=== PATIENT | female | born 1955 | race Caucasian/White ===

== ENCOUNTER → 2018-01-07 07:50 | Outpatient (CLI) | payer BC, SELFPAY ==
--- NOTE | 2018-01-07 07:52 | DI.MG.S_ITS ---
BILATERAL DIGITAL SCREENING MAMMOGRAM 3D/2D WITH CAD: 01/07/2018 CLINICAL: Routine screening. Family history of breast cancer. Comparison is made to exams dated: 01/05/2017 mammogram, 02/06/2016 mammogram - [facility], and 06/04/2014 ductography - [facility]. The tissue of both breasts is heterogeneously dense. This may lower the sensitivity of mammography. Current study was also evaluated with a Computer Aided Detection (CAD) system. No significant masses, calcifications, or other findings are seen in either breast. There has been no significant interval change. IMPRESSION: NEGATIVE There is no mammographic evidence of malignancy. A 1 year screening mammogram is recommended. This exam was interpreted at Station ID: [id number]. NOTE: For mammograms, a report in lay terms will be sent to the patient. Approximately 15% of breast malignancies will not be visualized mammographically. In the management of a palpable breast mass, a negative mammogram must not discourage biopsy of a clinically suspicious lesion. Electronically Signed By: Yvrose anand/sarah:01/07/2018 09:50:54 copy to: JANES MELGAR letter sent: Normal Exam ACR BI-RADS Category 1: Negative 3341F
[2018-01-07 08:49] LABS: HEMOLYSIS < 15 (0-50); Iron 98 ug/dL (37-170)
[2018-01-07 08:51] LABS: Alanine Aminotransferase 29 IU/L (9-52); Albumin 4.3 g/dL (3.5-5.0); Albumin Globulin Ratio 1.7 (1.0-2.8); Alkaline Phosphatase 61 U/L (38-126); Aspartate Aminotransferase 19 IU/L (14-36); BUN Creatinine Ratio 23.3 (6-22); Bilirubin Total 0.9 mg/dL (0.2-1.3); Blood Urea Nitrogen 21 mg/dL (7-17); Calcium 9.5 mg/dL (8.4-10.2); Carbon Dioxide 28 mmol/L (22-32); Chloride 108 mmol/L (98-107); Cholesterol 225 mg/dL (140-199); Estimated Glomerular Filt Rate > 60.0 mL/min (>60); Globulin 2.6 g/dL (1.7-4.1); Glucose 115 mg/dL (80-110); HDL Cholesterol 42 mg/dL (40-60); HEMOLYSIS < 15 (0-50); LDL Cholesterol Calculated 158 mg/dL (<100); Sodium 145 mmol/L (137-145); Total Protein 6.9 g/dL (6.3-8.2); Triglycerides 124 mg/dL (35-150)
[2018-01-07 08:54] LABS: Hemoglobin A1C% w Est Avg Glu 6.1 % (4.0-6.0)
[2018-01-07 09:00] LABS: Percent Iron Saturation 31 % (15-50); Total Iron Binding Capacity 313 ug/dL (265-497); Transferrin 256 mg/dL (206-381)
[2018-01-07 09:11] LABS: Free T3, Triiodothyronine Free 2.74 pg/mL (2.77-5.27); Free T4, Direct Thyroxine 0.79 ng/dL (0.78-2.19)
[2018-01-07 09:24] LABS: Thyroid Stimulating Hormone 3.16 uIU/mL (0.47-4.68)
[2018-01-11 08:32] LABS: Estrogen 59.3 pg/mL
== END ==
PROVIDERS: PCP Physician Assistant; Visit Provider Specialist
DX: Z12.31 Encounter for screening mammogram for malignant neoplasm of breast (principal); Z80.3 Family history of malignant neoplasm of breast; R53.83 Other fatigue; E78.5 Hyperlipidemia, unspecified; R73.01 Impaired fasting glucose
CPT/HCPCS: 36415; 77063; 77067; 80053; 80061; 82672; 82728; 83036; 83540; 83550; 84439; 84443; 84481

== ENCOUNTER → 2018-07-01 08:35 | Outpatient (CLI) | payer BC, SELFPAY ==
[2018-07-01 09:12] LABS: Hemoglobin A1C% w Est Avg Glu 5.8 % (4.0-6.0)
[2018-07-01 09:17] LABS: Cholesterol 215 mg/dL (140-199); Glucose 119 mg/dL (80-110); HDL Cholesterol 33 mg/dL (40-60); LDL Cholesterol Calculated 153 mg/dL (<100); Triglycerides 145 mg/dL (35-150)
== END ==
PROVIDERS: PCP Physician Assistant; Visit Provider Physician Assistant
DX: E78.5 Hyperlipidemia, unspecified (principal); R73.01 Impaired fasting glucose
CPT/HCPCS: 36415; 80061; 82947; 83036

== ENCOUNTER → 2018-11-04 07:47 | Outpatient (CLI) | payer BC, SELFPAY ==
[2018-11-04 09:27] LABS: Alanine Aminotransferase 21 IU/L (9-52); Albumin 4.2 g/dL (3.5-5.0); Albumin Globulin Ratio 1.5 (1.0-2.8); Alkaline Phosphatase 66 U/L (38-126); Aspartate Aminotransferase 18 IU/L (14-36); Blood Urea Nitrogen 17 mg/dL (7-17); Calcium 9.5 mg/dL (8.4-10.2); Carbon Dioxide 28 mmol/L (22-32); Chloride 105 mmol/L (98-107); Cholesterol 196 mg/dL (140-199); Globulin 2.8 g/dL (1.7-4.1); Glucose 120 mg/dL (80-110); HDL Cholesterol 39 mg/dL (40-60); HEMOLYSIS < 15 (0-50); LDL Cholesterol Calculated 136 mg/dL (<100); Potassium 4.7 mmol/L (3.4-5.1); Sodium 143 mmol/L (137-145); Triglycerides 103 mg/dL (35-150)
[2018-11-04 09:29] LABS: Creatinine Urine Random 202.3 mg/dL
[2018-11-04 09:34] LABS: Microalbumi Creatinin Ratio Ur 3.9 ug/mg CR (<30); Microalbumin Urine Random 0.8 mg/dL (0-1.6)
[2018-11-04 09:57] LABS: Thyroid Stimulating Hormone 2.13 uIU/mL (0.47-4.68)
== END ==
PROVIDERS: PCP Physician Assistant; Visit Provider Physician Assistant
DX: E78.5 Hyperlipidemia, unspecified (principal); R55 Syncope and collapse; R73.01 Impaired fasting glucose
CPT/HCPCS: 36415; 80053; 80061; 82043; 82570; 84443

== ENCOUNTER → 2018-11-11 10:36 | Outpatient (CLI) | payer BC, SELFPAY ==
--- NOTE | 2018-11-11 10:37 | DI.MG.S_ITS ---
BILATERAL DIGITAL SCREENING MAMMOGRAM 3D/2D WITH CAD: 11/11/2018 CLINICAL: Routine screening. Family history of breast cancer. Comparison is made to exams dated: 01/07/2018 mammogram, 01/05/2017 mammogram, and 02/06/2016 mammogram - [facility]. The tissue of both breasts is heterogeneously dense. This may lower the sensitivity of mammography. Current study was also evaluated with a Computer Aided Detection (CAD) system. No significant masses, calcifications, or other findings are seen in either breast. There has been no significant interval change. IMPRESSION: NEGATIVE There is no mammographic evidence of malignancy. A 1 year screening mammogram is recommended. This exam was interpreted at Station ID: [id number]. NOTE: For mammograms, a report in lay terms will be sent to the patient. Approximately 15% of breast malignancies will not be visualized mammographically. In the management of a palpable breast mass, a negative mammogram must not discourage biopsy of a clinically suspicious lesion. Electronically Signed By: Berto beatty/sarah:11/13/2018 11:02:10 copy to: JANES MELGAR letter sent: Normal Exam ACR BI-RADS Category 1: Negative 3341F
== END ==
PROVIDERS: PCP Physician Assistant; Visit Provider Physician Assistant
DX: Z12.31 Encounter for screening mammogram for malignant neoplasm of breast (principal); Z80.3 Family history of malignant neoplasm of breast
CPT/HCPCS: 77063; 77067

== ENCOUNTER → 2018-11-27 18:50 | Outpatient (CLI) | payer BC, SELFPAY ==
--- NOTE | 2018-11-27 18:53 | DI.RAD.S_ITS ---
PROCEDURE: XR ANKLE LT MIN 3V INDICATIONS: rolled ankle, pain, swelling, decreased ROM, r/o fx TECHNIQUE: 3 views of the ankle were acquired. COMPARISON: None. FINDINGS: Bones: No fractures or dislocations. Ankle mortise is normally aligned. No suspicious bony lesions. Soft tissues: No tibiotalar joint effusion. Achilles tendon appears normal. IMPRESSION: No fracture or dislocation. Dictated by: Emiliano Baum M.D. on 11/27/2018 at 19:22 Approved by: Emiliano Baum M.D. on 11/27/2018 at 19:23
== END ==
PROVIDERS: PCP Physician Assistant; Visit Provider Physician Assistant
DX: S99.912A Unspecified injury of left ankle, initial encounter (principal); M25.472 Effusion, left ankle; X58.XXXA Exposure to other specified factors, initial encounter
CPT/HCPCS: 73610

== ENCOUNTER → 2019-01-13 10:18 | Outpatient (CLI) | payer BC, SELFPAY ==
[2019-01-13 11:00] LABS: Cholesterol 227 mg/dL (140-199); Glucose 114 mg/dL (80-110); HDL Cholesterol 34 mg/dL (40-60); LDL Cholesterol Calculated 174 mg/dL (<100); Triglycerides 93 mg/dL (35-150)
== END ==
PROVIDERS: PCP Physician Assistant; Visit Provider Physician Assistant
DX: E78.5 Hyperlipidemia, unspecified (principal); R73.01 Impaired fasting glucose
CPT/HCPCS: 36415; 80061; 82947

== ENCOUNTER → 2020-03-05 08:53 | Outpatient (CLI) | payer OTHER, MEDICAID, SELFPAY ==
[2020-03-05 09:14] LABS: Hematocrit 40.5 % (36-46); Hemoglobin 13.7 g/dL (12.0-16.0); Mean Corpuscular HGB Conc 33.8 % (30-36); Mean Corpuscular Hemoglobin 29.2 PG (26-34); Mean Corpuscular Volume 86.4 fL (80-100); Platelet Count 227 X10^3/uL (150-400); Red Blood Cell Count 4.69 X10^6/uL (4.0-5.2); Red Cell Distribution Width 13.5 % (11.6-14.8); White Blood Cell Count 6.1 X10^3/uL (4.5-11.0)
[2020-03-05 09:20] LABS: Hemoglobin A1C% w Est Avg Glu 6.2 % (4.0-6.0)
[2020-03-05 09:26] LABS: Alanine Aminotransferase 28 IU/L (<35); Albumin 4.2 g/dL (3.5-5.0); Albumin Globulin Ratio 1.4 (1.0-2.8); Alkaline Phosphatase 67 U/L (38-126); Aspartate Aminotransferase 25 IU/L (14-36); BUN Creatinine Ratio 23.3 (6-22); Bilirubin Total 1.6 mg/dL (0.2-1.3); Blood Urea Nitrogen 24 mg/dL (7-17); Calcium 9.4 mg/dL (8.4-10.2); Carbon Dioxide 31 mmol/L (22-32); Chloride 108 mmol/L (98-107); Cholesterol 174 mg/dL (140-199); Estimated Glomerular Filt Rate 53.9 mL/min (>60); Globulin 2.9 g/dL (1.7-4.1); Glucose 118 mg/dL (80-110); HDL Cholesterol 43 mg/dL (40-60); HEMOLYSIS < 15 (0-50); LDL Cholesterol Calculated 116 mg/dL (<100); Potassium 4.5 mmol/L (3.4-5.1); Sodium 140 mmol/L (137-145); Total Protein 7.1 g/dL (6.3-8.2); Triglycerides 73 mg/dL (35-150)
== END ==
PROVIDERS: PCP Registered Nurse Diabetes Educator; Referring Provider Registered Nurse Diabetes Educator; Visit Provider Registered Nurse Diabetes Educator
DX: E78.5 Hyperlipidemia, unspecified (principal); R03.0 Elevated blood-pressure reading, without diagnosis of hypertension; R73.01 Impaired fasting glucose
CPT/HCPCS: 36415; 80053; 80061; 83036; 84443; 85027

== ENCOUNTER → 2020-03-12 12:13 | Outpatient (CLI) | payer OTHER, MEDICAID, SELFPAY ==
[2020-03-12 12:31] LABS: Bacteria Urine None Seen; RBC Urine None Seen (0-5/HPF); WBC Urine None Seen (0-5/HPF)
[2020-03-12 14:04] LABS: Appearance Urine UA CLEAR; Bilirubin Urine UA NEGATIVE (NEGATIVE); Color Urine UA YELLOW; Glucose Urine UA NEGATIVE (Negative); Ketones Urine UA NEGATIVE (NEGATIVE); Leukocyte Esterase Urine UA NEGATIVE (NEGATIVE); Nitrite Urine UA NEGATIVE (Negative); Occult Blood Urine UA 2+ (Negative); Protein Urine UA NEGATIVE (Negative); Specific Gravity Urine UA 1.025 (1.000-1.035); Urobilinogen Urine UA 0.2 E.U./dL (0.2)
[2020-03-12 14:20] LABS: Culture Indicated Urine Cult Not Indicated
[2020-03-12 16:01] LABS: Creatinine Urine Random 98.4 mg/dL
[2020-03-12 16:04] LABS: Microalbumin Urine Random < 0.6 mg/dL (0-1.6)
== END ==
PROVIDERS: PCP Registered Nurse Diabetes Educator; Referring Provider Registered Nurse Diabetes Educator; Visit Provider Registered Nurse Diabetes Educator
DX: N18.9 Chronic kidney disease, unspecified (principal)
CPT/HCPCS: 81001; 82043; 82570

== ENCOUNTER → 2020-03-14 08:13 | Outpatient (CLI) | payer OTHER, MEDICAID, SELFPAY ==
--- NOTE | 2020-03-14 08:14 | DI.US.S_ITS ---
PROCEDURE: US RENAL COMPLETE INDICATIONS: CKD TECHNIQUE: Real-time scanning was performed of the kidneys and bladder, with image documentation. COMPARISON: None. FINDINGS: Kidneys: Kidneys are normal in size. Right kidney measures 10.9 cm long; left kidney measures 10.7 cm long. Right renal cortical thickness is 1.4 cm; left renal cortical thickness is 1.1 cm. Renal cortical echotexture is normal. No hydronephrosis or nephrolithiasis. No suspicious solid mass lesions. There is a 1.7 cm right renal collecting system margin cyst, simple in character. Bladder: Pre-void bladder volume is 136 mL. Post-void residual is 0 mL. Pre-void images demonstrate no intraluminal masses or stones. On pre-void images, bilateral ureteral jets are noted with color Doppler interrogation. (Of note, ureteral jets may not be detectable in up to 25% of cases due to insufficient differences in specific gravity between ureteral and bladder urine). Miscellaneous: No free pelvic fluid. IMPRESSION: No hydronephrosis or nephrolithiasis is found, normal bladder function. Normal renal size and echotexture. Dictated by: Johnny Hilario M.D. on 03/14/2020 at 12:02 Approved by: Johnny Hilario M.D. on 03/14/2020 at 12:04
--- NOTE | 2020-03-14 08:14 | DI.MG.S_ITS ---
BILATERAL DIGITAL SCREENING MAMMOGRAM 3D/2D WITH CAD: 03/14/2020 CLINICAL: Routine screening. Family history of breast cancer. Comparison is made to exams dated: 11/11/2018 mammogram, 01/07/2018 mammogram, 01/05/2017 mammogram, 02/06/2016 mammogram - [facility], and 11/13/2012 mammogram - [facility]. The tissue of both breasts is heterogeneously dense. This may lower the sensitivity of mammography. Current study was also evaluated with a Computer Aided Detection (CAD) system. No significant masses, calcifications, or other findings are seen in either breast. There has been no significant interval change. IMPRESSION: NEGATIVE There is no mammographic evidence of malignancy. A 1 year screening mammogram is recommended. This exam was interpreted at Station ID: [id number]. NOTE: For mammograms, a report in lay terms will be sent to the patient. Approximately 15% of breast malignancies will not be visualized mammographically. In the management of a palpable breast mass, a negative mammogram must not discourage biopsy of a clinically suspicious lesion. Electronically Signed By: Silas new/sarah:03/14/2020 09:06:00 copy to: JANES MELGAR letter sent: Normal Exam ACR BI-RADS Category 1: Negative 3341F
== END ==
PROVIDERS: PCP Registered Nurse Diabetes Educator; Referring Provider Registered Nurse Diabetes Educator; Visit Provider Registered Nurse Diabetes Educator
DX: Z12.31 Encounter for screening mammogram for malignant neoplasm of breast (principal); Z80.3 Family history of malignant neoplasm of breast; N18.9 Chronic kidney disease, unspecified
CPT/HCPCS: 76770; 77063; 77067

== ENCOUNTER 2020-11-09 10:34 | Emergency (ER) | payer MEDICARE, MEDICAID, SELFPAY ==
[2020-11-09 11:02] VITALS: BP 137/83; PULSE 83; RESP 20; TEMP 37; O2SAT 98; BMI 24.3
--- NOTE | 2020-11-09 11:06 | DI.RAD.S_ITS ---
PROCEDURE: XR KNEE RT 3V INDICATIONS: dogs ran into right knee. heard a pop, able to bear weight. TECHNIQUE: 3 views of the knee were acquired. COMPARISON: [facility], , KNEE 3V LEFT, 01/25/2017, 16:12. FINDINGS: Bones: No fractures or dislocations. A few small osteophytes. Mild joint space narrowing in the medial compartment. No suspicious bony lesions. Soft tissues: A joint effusion is present. No suspicious soft tissue calcifications. IMPRESSION: No acute osseous abnormality. Joint effusion. 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 Dictated by: Silas Cole M.D. on 11/09/2020 at 12:03 Approved by: Silas Cole M.D. on 11/09/2020 at 12:05
--- NOTE | 2020-11-09 11:55 | ED_ITS ---
HPI - Extremity Injury (Lower) <MAYNOR Garland - Last Filed: 11/09/20 17:25> General Chief Complaint: Extremity Injury, Lower Stated Complaint: Hear knee pop when dogs ran into her, swollen Time Seen by Provider: 11/09/20 11:55 Source: patient Mode of arrival: Ambulatory Limitations: no limitations History of Present Illness HPI Narrative: 5-year-old female presents to the ED with 1 day of right lateral knee pain after her dogs ran into her yesterday from the side. Patient reports she heard a pop in her knee when it happened and she is adjusting her gait to walk. She describes the pain as dull most of the time and and sharp and severe intermittently when walking. She reports that her pain has improved since yesterday, she was taking ibuprofen at home yesterday and that was helpful. She denies any weakness, numbness, or tingling. She has not had this pain before. Related Data Previous Rx's Medication Instructions Recorded atorvastatin 20 mg tablet 20 mg PO BEDTIME #90 tab 03/14/20 ketorolac 10 mg tablet 10 mg PO TID PRN 7 Days #20 tab 11/09/20 Allergies Allergy/AdvReac Type Severity Reaction Status Date / Time carisoprodol [CARISOPRODOL] Allergy Severe SWELLING, Verified 11/09/20 11:05 HIVES piroxicam [PIROXICAM] Allergy Severe SWOLLEN, Verified 11/09/20 11:05 PUFFY IN THE FACE Review of Systems <MAYNOR Garland - Last Filed: 11/09/20 17:25> Review of Systems Narrative: General: denies fever, chills Head/Neck: denies headache, neck pain Eyes: denies visual changes, eye pain Cardio: denies chest pain, palpitations Respiratory: denies shortness of breath, cough GI: denies abdominal pain, nausea, vomiting, or diarrhea : denies dysuria, hematuria MSK: Rt knee pain, right knee swelling, denies muscle weakness Skin: denies rash, itching Neuro: denies numbness, tingling Patient History <MAYNOR Garland - Last Filed: 11/09/20 17:25> Medical History Abnormal Pap smear of cervix Chickenpox (~1964) CKD (chronic kidney disease) Elevated BP without diagnosis of hypertension HPV in female Measles Mumps Ovarian cyst Surgical History History of tonsillectomy (~1965) Status post colonoscopy Family History Brother Age: 69 High cholesterol Father Cancer Hypertension Mother Cancer Sister Age: 67 High cholesterol Social History Smoking Status: Never smoker second hand exposure: No alcohol intake: current (sometimes socially.) substance use type: does not use Smoking Status: Never smoker alcohol intake frequency: 0-2 drinks per day Substance Use Type: does not use Exam <MAYNOR Garland - Last Filed: 11/09/20 17:25> Narrative Exam Narrative: Independently reviewed vitals signs and nursing notes. General: Awake, alert, nontoxic, no cardiorespiratory distress Head/Neck: Atraumatic, neck full range of motion Eyes: EOMI, conjunctiva normal Nose: nares patent, no rhinorrhea Mouth/Throat: moist mucus membranes, posterior pharynx normal, no oral lesions Cardio: Regular rate and rhythm, no peripheral edema Respiratory: respirations unlabored without wheezing, stridor, or rales. No retractions. GI: Abdomen soft, nontender MSK: Moves all extremities, neurovascularly intact, right knee with lateral edema, Karan test negative, no pain with Phoenix test, pain with Varus test and tenderness present over LCL Skin: Normal capillary refill, no rash Neuro: Normal speech and cognition, normal gait Initial Vital Signs Initial Vital Signs: Vital Signs Temperature 98.6 F 11/09/20 11:02 Pulse Rate 83 11/09/20 11:02 Respiratory Rate 20 11/09/20 11:02 Blood Pressure 137/83 11/09/20 11:02 Pulse Oximetry 98 11/09/20 11:02 <Oleg Cunningham DO - Last Filed: 11/09/20 17:36> Initial Vital Signs Initial Vital Signs: Vital Signs Temperature 98.6 F 11/09/20 11:02 Pulse Rate 83 11/09/20 11:02 Respiratory Rate 20 11/09/20 11:02 Blood Pressure 137/83 11/09/20 11:02 Pulse Oximetry 98 11/09/20 11:02 Procedures <MAYNOR Garland - Last Filed: 11/09/20 17:25> Orthopedic Splinting/Casting Injury #1: Side: right Lower Extremity Injury Location: knee Lower Extremity Immobilizer: knee immobilizer Other Orthopedic Equipment: walker Post splinting neuro exam: intact Post splinting vascular exam: intact Placed by: Nursing Course <MAYNOR Garland - Last Filed: 11/09/20 17:25> Orders Ordered: ED Orders 11/09/20 11:06 XR knee RT 3V Stat Discontinued Medications Ketorolac Tromethamine (Ketorolac 30 Mg/Ml Vial) 30 mg IM NOW ONE Stop: 11/09/20 12:10 Last Admin: 11/09/20 12:34 Dose: 30 mg Documented by: BROOKSOR Vital Signs Vital signs: Vital Signs - 8 hr 11/09/20 11:02 11/09/20 13:48 Temperature 98.6 F Pulse Rate 83 87 Respiratory Rate 20 Blood Pressure 137/83 136/84 Pulse Oximetry 98 98 <Oleg Cunningham DO - Last Filed: 11/09/20 17:36> Orders Ordered: ED Orders 11/09/20 11:06 XR knee RT 3V Stat Discontinued Medications Ketorolac Tromethamine (Ketorolac 30 Mg/Ml Vial) 30 mg IM NOW ONE Stop: 11/09/20 12:10 Last Admin: 11/09/20 12:34 Dose: 30 mg Documented by: ATAYLOR Vital Signs Vital signs: Vital Signs - 8 hr 11/09/20 11:02 11/09/20 13:48 Temperature 98.6 F Pulse Rate 83 87 Respiratory Rate 20 Blood Pressure 137/83 136/84 Pulse Oximetry 98 98 MDM - Extremity Injury (Lower) <MAYNOR Garland - Last Filed: 11/09/20 17:25> Imaging Data Extremity x-ray #1: Radiologist's Impression: PROCEDURE:? XR KNEE RT 3V ? INDICATIONS:? dogs ran into right knee. heard a pop, able to bear weight. ? TECHNIQUE:? 3 views of the knee were acquired.? ? COMPARISON:? [facility], CR, KNEE 3V LEFT, 01/25/2017, 16:12. ? FINDINGS:? ? Bones:? No fractures or dislocations.? A few small osteophytes.? Mild joint space narrowing in the medial compartment.? No suspicious bony lesions.? ? Soft tissues:? A joint effusion is present.? No suspicious soft tissue calcifications.? ? ? IMPRESSION:? No acute osseous abnormality.? Joint effusion. ? 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 ? ? Dictated by: Silas Cole M.D. on 11/09/2020 at 12:03 ? ? Approved by: Silas Cole M.D. on 11/09/2020 at 12:05 ? MDM Narrative Medical decision making narrative: 65-year-old female presents with right knee pain that started yesterday when dogs ran into the lateral side of her right knee. She reports that she heard a pop, and has had swelling and pain since. X-ray was negative for fracture. Patient had pain with varus stress test and point tenderness over the LCL. Placed in a knee immobilizer and given a walker, encouraged patient to follow-up with her PCP in 1 week if still painful and swollen. Initial ddx to include but not limited to ligamental injury, meniscal tear, arthritis. Patient is appropriate and amenable to discharge home. Vital signs are stable on repeat examination is unremarkable. Patient has been informed of results. Patient has been given strict return to ER precautions for any new or worsening symptoms. Patient understands to follow up closely with outpatient providers as instructed. Patient understands plan and agrees to discharge home. All questions and concerns answered at this time. Discharge Plan Departure Patient Disposition: Home Clinical Impression: Acute knee pain Qualifiers: Laterality: right Qualified Code(s): M25.561 - Pain in right knee Instructions: DI for Knee Sprain, DI for Knee Pain Activity Restrictions/Additional Instructions: *You have been diagnosed with right knee pain, likely a sprain, but you could have ligamental injury that did not show up on x-ray. You have swelling in your knee status that was visible on x-ray. If not better in 1 week please follow- up with your PCP or you can follow-up with [facility], Dr. Kimble is on for them this week. Either 1 of them can order an MRI. *What to do: *Please continue to take your regular medications as directed. [x ] New medication prescriptions sent to your pharmacy: [[facility] ] [ ] New medication written as a paper prescription [ ] No new medications given *Please follow up with your primary care provider in 2-3 days, call for an appointment. Let them know you were seen in the Emergency Department and that we ask that you be seen in follow up. We will electronically transmit a record of today's note if your PCP is in our system *If you do not have a primary care provider please contact the [facility] Resource line at [phone]. They will ask some questions about your medical history and help get you set up with a doctor in the community. *Return to Emergency Department if you should have any new, worsening or concerning symptoms, such as [fever greater than 101F, chills, worsening pain, persistent vomiting or other bothersome symptoms] Prescriptions: New ketorolac 10 mg tablet 10 mg PO TID PRN (Reason: pain) 7 Days Qty: 20 RF: 0 No Action atorvastatin 20 mg tablet 20 mg PO BEDTIME Qty: 90 RF: 3 Referrals: Joseph Kimble MD [Physician] - Arvind Mejia ARNP [Primary Care Provider] - <Oleg Cunningham, - Last Filed: 11/09/20 17:36> [facility] Dr Cunningham Co-Sign Statement: I was available for consultation during this patient's emergency department visit. This chart is signed by myself for administrative purposes only. I did not have direct contact with this patient during this visit. They were seen independently by the APC.
[2020-11-09] MEDS: KETOROLAC 30 MG/ML VIAL IM (12:34)
[2020-11-09 13:48] VITALS: BP 136/84; PULSE 87; O2SAT 98
== END 2020-11-09 13:56 | disposition home or self-care (01) ==
PROVIDERS: Emergency Provider Nurse Practitioner Critical Care Medicine; PCP Registered Nurse Diabetes Educator
DX: M25.561 Pain in right knee (principal); W22.8XXA Striking against or struck by other objects, initial encounter
CPT/HCPCS: 73562; 96372; 99283; 99284; J1885

== ENCOUNTER → 2020-11-27 17:38 | Outpatient (CLI) | payer MEDICARE, MEDICAID, SELFPAY ==
--- NOTE | 2020-11-27 17:38 | DI.MRI.S_ITS ---
PROCEDURE: MR KNEE RT WO CON INDICATIONS: Unspecified internal derangement of right knee TECHNIQUE: Noncontrast sagittal PD fast spin echo and T2 fast spin echo with fat saturation, sagittal 3-D FLASH with fat saturation; coronal T1 spin echo and PD fast spin echo with fat saturation, and axial PD fast spin echo with fat saturation through the knee. COMPARISON: [facility], CR, XR KNEE RT 3V, 11/09/2020, 11:43. FINDINGS: Image quality: Excellent. Menisci: There is an inferior flap tear in the body and posterior horn of the medial meniscus with mild degenerative tearing also present extending into the posterior horn. The lateral meniscus appears intact. The meniscal root ligaments appear intact. Cruciate ligaments: The anterior and posterior cruciate ligaments appear intact. Medial structures: The medial collateral ligament appears intact. The semimembranosus tendon insertions and meniscocapsular junction appear intact. Visualized portions of the pes anserinus tendons appear intact with mild peritendinous edema but no discrete associated bursal fluid collections. Lateral structures: The lateral collateral ligament, long and short heads of the biceps femoris tendon appear intact. The popliteus tendon appears intact. Iliotibial band appears normal. Anterior structures: The quadriceps and patellar tendons appear intact. Patellar alignment is normal. No femoral trochlear dysplasia or ventral trochlear prominence. No edema in the infrapatellar fat pad. Bones and cartilage: There is a nondepressed subchondral impaction fracture within the lateral tibial plateau with associated adjacent bone marrow edema. A small peripheral region of indistinct bone marrow edema is also demonstrated in the medial femoral condyle anteriorly suggestive of a mild bone contusion. Mild cartilage thinning and superficial chondral irregularity are present within the medial and lateral compartments. There is also mild superficial chondral irregularity along the trochlear cartilage. Joint space: There is physiologic knee joint fluid. No Teresa's cyst. Normal appearing synovial plicae are incidentally noted. IMPRESSION: 1. Nondepressed subchondral impaction fracture of the lateral tibial plateau. There is a likely associated mild bone contusion within the medial femoral condyle anteriorly. 2. Complex tearing of the medial meniscus involving the body and posterior horn. Dictated by: Berto Stephens M.D. on 11/28/2020 at 10:06 Approved by: Berto Stephens M.D. on 11/28/2020 at 10:33
== END ==
PROVIDERS: PCP Registered Nurse Diabetes Educator; Referring Provider Orthopaedic Surgery Adult Reconstructive Orthopaedic Surgery; Visit Provider Orthopaedic Surgery Adult Reconstructive Orthopaedic Surgery
DX: S83.231A Complex tear of medial meniscus, current injury, right knee, initial encounter (principal); S82.141A Displaced bicondylar fracture of right tibia, initial encounter for closed fracture; X58.XXXA Exposure to other specified factors, initial encounter
CPT/HCPCS: 73721

== ENCOUNTER → 2020-12-25 11:06 | Outpatient (CLI) | payer MEDICARE, MEDICAID, SELFPAY ==
[2020-12-25 16:02] LABS: COVID19 -Nasal RAPID Negative (Negative)
== END ==
PROVIDERS: PCP Registered Nurse Diabetes Educator; Visit Provider Registered Nurse
DX: Z20.822 Contact with and (suspected) exposure to COVID-19 (principal)
CPT/HCPCS: 87635

== ENCOUNTER → 2020-12-25 11:24 | Outpatient (CLI) | payer MEDICARE, MEDICAID, SELFPAY ==
--- NOTE | 2020-12-25 11:29 | DI.RAD.S_ITS ---
PROCEDURE: XR FINGER LT MIN 2V INDICATIONS: left 4rth finger injury, pain TECHNIQUE: AP hand, 2 views of the 4th finger(s) acquired. COMPARISON: None. FINDINGS: Bones: Minimally displaced intra-articular fracture is present involving the base of the 4th distal phalanx along the ulnar surface.. No suspicious bony lesions. Soft tissues: No suspicious soft tissue calcifications. IMPRESSION: Intra-articular fracture involving the base of the 4th distal phalanx. Dictated by: Chepe ONTIVEROS Interpreted: Ralf Vasques MD on 12/25/2020 at 11:47 Transcribed by: KERVIN on 12/25/2020 at 11:48 Approved by: Ralf Vasques M.D. on 12/25/2020 at 11:51
== END ==
PROVIDERS: PCP Registered Nurse Diabetes Educator; Referring Provider Registered Nurse; Visit Provider Registered Nurse
DX: S62.635A Displaced fracture of distal phalanx of left ring finger, initial encounter for closed fracture (principal); Z20.822 Contact with and (suspected) exposure to COVID-19; X58.XXXA Exposure to other specified factors, initial encounter
CPT/HCPCS: 73140; 87635

== ENCOUNTER → 2021-01-15 10:36 | Outpatient (CLI) | payer MEDICARE, MEDICAID, SELFPAY | PROVIDERS: PCP Registered Nurse Diabetes Educator; Referring Provider Orthopaedic Surgery; Visit Provider Orthopaedic Surgery | DX: S82.141D Displaced bicondylar fracture of right tibia, subsequent encounter for closed fracture with routine healing; M85.852 Other specified disorders of bone density and structure, left thigh; Z78.0 Asymptomatic menopausal state; Z82.62 Family history of osteoporosis | CPT/HCPCS: 77080 ==

== ENCOUNTER → 2021-04-04 08:08 | Outpatient (CLI) | payer MEDICARE, MEDICAID, SELFPAY ==
[2021-04-04 10:25] LABS: Hematocrit 41.3 % (36-46); Mean Corpuscular HGB Conc 33.8 % (30-36); Mean Corpuscular Hemoglobin 29.2 PG (26-34); Mean Corpuscular Volume 86.3 fL (80-100); Platelet Count 213 X10^3/uL (150-400); Red Blood Cell Count 4.79 X10^6/uL (4.0-5.2); Red Cell Distribution Width 13.5 % (11.6-14.8); White Blood Cell Count 5.3 X10^3/uL (4.5-11.0)
[2021-04-04 10:44] LABS: Appearance Urine UA CLEAR; Bilirubin Urine UA NEGATIVE (NEGATIVE); Color Urine UA YELLOW; Glucose Urine UA NEGATIVE (Negative); Ketones Urine UA NEGATIVE (NEGATIVE); Leukocyte Esterase Urine UA NEGATIVE (NEGATIVE); Nitrite Urine UA NEGATIVE (Negative); Occult Blood Urine UA TRACE-LYSED (Negative); Protein Urine UA NEGATIVE (Negative); Specific Gravity Urine UA >=1.030 (1.000-1.035); Urobilinogen Urine UA 0.2 E.U./dL (0.2)
[2021-04-04 10:51] LABS: Hemoglobin A1C% w Est Avg Glu 6.1 % (4.0-6.0)
[2021-04-04 11:00] LABS: Bacteria Urine None Seen; Culture Indicated Urine Cult Not Indicated; RBC Urine None Seen (0-5/HPF); Urine Comments Microscopic Normal; WBC Urine None Seen (0-5/HPF)
[2021-04-04 11:08] LABS: Alanine Aminotransferase 28 IU/L (<35); Albumin 4.4 g/dL (3.5-5.0); Albumin Globulin Ratio 1.6 (1.0-2.8); Alkaline Phosphatase 59 U/L (38-126); Aspartate Aminotransferase 29 IU/L (14-36); BUN Creatinine Ratio 28.7 (6-22); Bilirubin Total 1.4 mg/dL (0.2-1.3); Blood Urea Nitrogen 27 mg/dL (7-17); Calcium 9.7 mg/dL (8.4-10.2); Carbon Dioxide 30 mmol/L (22-32); Chloride 107 mmol/L (98-107); Cholesterol 168 mg/dL (140-199); Estimated Glomerular Filt Rate 59.8 mL/min (>60); Globulin 2.7 g/dL (1.7-4.1); Glucose 117 mg/dL (80-110); HDL Cholesterol 52 mg/dL (40-60); HEMOLYSIS < 15 (0-50); LDL Cholesterol Calculated 106 mg/dL (<100); Sodium 141 mmol/L (137-145); Total Protein 7.1 g/dL (6.3-8.2); Triglycerides 50 mg/dL (35-150)
[2021-04-04 11:33] LABS: TSH w/ Reflex to FT4 2.79 uIU/mL (0.47-4.68)
== END ==
PROVIDERS: PCP Registered Nurse Diabetes Educator; Referring Provider Registered Nurse Diabetes Educator; Visit Provider Registered Nurse Diabetes Educator
DX: E78.5 Hyperlipidemia, unspecified (principal); N18.31 Chronic kidney disease, stage 3a; R03.0 Elevated blood-pressure reading, without diagnosis of hypertension; R73.01 Impaired fasting glucose
CPT/HCPCS: 36415; 80053; 80061; 81001; 83036; 84443; 85027

== ENCOUNTER → 2021-04-17 15:58 | Outpatient (CLI) | payer MEDICARE, MEDICAID, SELFPAY ==
--- NOTE | 2021-04-17 16:02 | DI.MG.S_ITS ---
BILATERAL DIGITAL SCREENING MAMMOGRAM 3D/2D WITH CAD: 04/17/2021 CLINICAL: Routine screening. Family history of breast cancer. Comparison is made to exams dated: 03/14/2020 mammogram, 11/11/2018 mammogram, and 01/07/2018 mammogram - [facility]. The tissue of both breasts is heterogeneously dense. This may lower the sensitivity of mammography. Current study was also evaluated with a Computer Aided Detection (CAD) system. No significant masses, calcifications, or other findings are seen in either breast. There has been no significant interval change. IMPRESSION: NEGATIVE There is no mammographic evidence of malignancy. A 1 year screening mammogram is recommended. This exam was interpreted at Station ID: [id number]. NOTE: For mammograms, a report in lay terms will be sent to the patient. Approximately 15% of breast malignancies will not be visualized mammographically. In the management of a palpable breast mass, a negative mammogram must not discourage biopsy of a clinically suspicious lesion. Electronically Signed By: Mariano christopher/sarah:04/17/2021 18:04:53 copy to: JANES MELGAR letter sent: Normal Exam ACR BI-RADS Category 1: Negative 3341F
== END ==
PROVIDERS: PCP Registered Nurse Diabetes Educator; Referring Provider Registered Nurse Diabetes Educator; Visit Provider Registered Nurse Diabetes Educator
DX: Z12.31 Encounter for screening mammogram for malignant neoplasm of breast (principal); Z80.3 Family history of malignant neoplasm of breast
CPT/HCPCS: 77063; 77067

== ENCOUNTER → 2021-05-29 09:54 | Outpatient (CLI) | payer MEDICARE, MEDICAID, SELFPAY ==
[2021-05-29 13:16] LABS: COVID19 -Nasal RAPID Negative (Negative)
== END ==
PROVIDERS: PCP Registered Nurse Diabetes Educator; Visit Provider Family Medicine Sleep Medicine
DX: Z20.822 Contact with and (suspected) exposure to COVID-19 (principal)
CPT/HCPCS: 87635; C9803

== ENCOUNTER 2021-06-01 10:04 | Day surgery (SDC) | payer MEDICARE, MEDICAID, SELFPAY ==
[2021-06-01 10:16] VITALS: BP 129/72; PULSE 74; RESP 18; TEMP 36.9; O2SAT 97; BMI 24.0
[2021-06-01] MEDS: SODIUM CHLORIDE 0.9% 1,000 ML 100 ML IV (10:32)
--- NOTE | 2021-06-01 10:40 | PM.HP.1 ---
History of Present Illness History of Present Illness Date Patient Seen: 06/01/21 Time Patient Seen: 10:40 Chief complaint: SDC Narrative: Personal history of colon polyps. Reviewed the prior colonoscopy by Dr. Jean from 2017. This was a sessile serrated adenoma Patient History Medical History Abnormal Pap smear of cervix Chickenpox (~1964) CKD (chronic kidney disease) Elevated BP without diagnosis of hypertension Finger injury History of colon polyps HPV in female Measles Mumps Ovarian cyst Respiratory infection Surgical History History of tonsillectomy (~1965) Status post colonoscopy Family & Social History Family History Brother Age: 70 High cholesterol Father Cancer Hypertension Mother Cancer Sister Age: 68 High cholesterol Social History: household members spouse Tobacco & Substance use: Smoking Status Never smoker alcohol intake current alcohol intake frequency 0-2 drinks per day Substance Use Type does not use Meds Home Medications and Allergies Home Medications Medication Instructions Recorded Confirmed Type atorvastatin 20 mg tablet 20 mg PO BEDTIME #90 tab 04/07/21 06/01/21 Rx Allergies Allergy/AdvReac Type Severity Reaction Status Date / Time carisoprodol [CARISOPRODOL] Allergy Severe SWELLING, Verified 06/01/21 10:15 HIVES piroxicam [PIROXICAM] Allergy Severe SWOLLEN, Verified 06/01/21 10:15 PUFFY IN THE FACE Review of Systems Review of Systems ROS: Yes All systems reviewed with the patient and are negative except as otherwise documented Exam Vital Signs (past 8 hours): - 06/01/21 10:16 Temperature 98.4 F Pulse Rate 74 Respiratory Rate 18 Blood Pressure 129/72 Pulse Oximetry 97 Oxygen Delivery Method Room Air Const General: cooperative and comfortable Orientation: alert HENMT Head: normocephalic Ears: external ears normal Nose: external nose normal Face and sinus: normal facial exam Mouth: oral mucosae normal Eyes General: appearance normal, both eyes and all related structures Neck Neck: normal visual inspection Chest Chest: normal inspection of the chest Resp Effort & Inspection: normal respiratory effort Cardio Rate: regular rate GI Inspection: normal to inspection Skin General: no rashes or lesions noted and No jaundice Neuro General: patient alert and moves all extremities Cognition: normal cognition Speech: speech normal Extrem General: no pedal edema Psych Appearance: grossly normal Assessment & Plan Assessment & Plan narrative: 66-year-old female with a personal history of colon polyps. Colonoscopy is planned for today. Time Spent With Patient Critical Care time: I spent a total of [] minutes of critical care time on this patient's care today; this time is exclusive of procedural time.
--- NOTE | 2021-06-01 10:42 | PM.PREOP ---
Pre-operative Note COVID-19 COVID-19 status: Negative Result date/Date tested (Pos, Neg/Pending): 05/29/21 Criteria for continued procedure: Possibility delay results in more complex future surgery or treatment Interval Note History & Physical reviewed/Exam performed by Physician: Yes Changes to H&P: No ASA Class (for procedural sedation): II
--- NOTE | 2021-06-01 11:35 | SUR.OPER ---
MULTIPLE PERIODS OF ABDOMINAL PRESSURE AND POSITIONING ATTEMPTED
--- NOTE | 2021-06-01 11:45 | SUR.OPER ---
UNABLE TO PROCEED PAST THE SPLENIC FLEXURE
--- NOTE | 2021-06-01 11:50 | P.OP.COLON_ITS ---
Operative Date/Time/Diagnoses Date of procedure: 06/01/21 Time of procedure: 11:50 Pre-op diagnosis: Colon polyp history Post-op diagnosis: same Procedure & Clinicians Study performed: Flexible sigmoidoscopy (incomplete colonoscopy) Same procedure as scheduled: Yes Indications: Colon polyp history Surgeon: Oren Negrete Procedure Notes SCOAP/Timeout: Done Procedure in detail: After the risks and benefits were explained, written and verbal informed consent was obtained. The patient was brought into the procedure room and placed into the left lateral decubitus position. Please see nurse supervisor statement clerks notes for sedation details. Digital rectal examination was accomplished. The scope was introduced into the patient and advanced under direct visualization to the cecum as identified by the appendiceal orifice and ileocecal valve. The scope was slowly withdrawn to carefully examine the mucosa for any defects or lesions. Comprehensive imaging was accomplished throughout the rectum including the dentate line. The colon was decompressed, the scope was then removed from the patient who tolerated the procedure well. Bowel prep adequate Pediatric colonoscope Scope withdrawal time: Not applicable as the cecum wa Sedation minutes: 26 Specimen(s): none sent Complications: none Impression: Patient had some mild diverticulosis in the sigmoid. Navigation from the rectum up to around splenic flexure was reasonably straight forward. However the patient had an exceptionally angulated splenic flexure and despite patient position changes, application of abdominal pressure, I could not navigate the tip of the scope safely around this corner. It required blind passage of the scope in order to do so. It felt as though I was putting too much pressure on the tip of the scope and could not be certain that I was not in a diverticulum in some of these instances and therefore felt it appropriate to abort our efforts. Approximately 25 minutes was spent at this 1 location before we declared failure. In the distal colon from splenic flexure down to rectum I did not appreciate any signs of inflammation no significant polyps nor mass lesions. Endoscopic diagnosis 1. Incomplete colonoscopy 2. Diverticulosis 3. Sharply angulated splenic flexure Post-procedure Plan for aftercare: 1. Continue primary care follow-up as before. 2. Consider virtual colonography to complete the colon cancer screening experience. We will call up to [facility] in [place] today to see if they have availability for Danita to take advantage of her bowel prep. Otherwise within the next couple of years I think virtual colonography would perhaps be appropriate for completion of the colon cancer screening experience. Disposition: PACU
[2021-06-01 11:51] VITALS: BP 144/89; PULSE 74; RESP 16; TEMP 37; O2SAT 92
[2021-06-01 11:56] VITALS: BP 148/92; PULSE 69; RESP 17; O2SAT 95
[2021-06-01 12:02] VITALS: BP 162/95; PULSE 66; RESP 16; O2SAT 97
--- NOTE | 2021-06-01 12:07 | SUR.OPER ---
PEDIATRIC SCOPE USED
[2021-06-01 12:10] VITALS: BP 155/83; PULSE 70; RESP 14; O2SAT 98
[2021-06-01 12:13] VITALS: BP 153/82; PULSE 73; RESP 16; TEMP 37; O2SAT 98
== END 2021-06-01 13:16 | disposition home or self-care (01) ==
PROVIDERS: PCP Registered Nurse Diabetes Educator; Referring Provider Internal Medicine Gastroenterology; Visit Provider Internal Medicine Gastroenterology
PROC: 0DJD8ZZ Inspection of Lower Intestinal Tract, Via Natural or Artificial Opening Endoscopic (ICD-10-PCS; CPT 45378; principal; 2021-06-01 11:00)
DX: Z12.11 Encounter for screening for malignant neoplasm of colon (principal); Z86.010 Personal history of colon polyps; K57.30 Diverticulosis of large intestine without perforation or abscess without bleeding; Z53.09 Procedure and treatment not carried out because of other contraindication
CPT/HCPCS: G0105; J2704

== ENCOUNTER → 2022-06-01 15:04 | Outpatient (CLI) | payer MEDICARE, MEDICAID, SELFPAY ==
--- NOTE | 2022-06-01 15:06 | DI.MG.S_ITS ---
BILATERAL DIGITAL SCREENING MAMMOGRAM 3D/2D WITH CAD: 06/01/2022 CLINICAL: Routine screening. Family history of breast cancer. Comparison is made to exams dated: 04/17/2021 mammogram, 03/14/2020 mammogram, and 11/11/2018 mammogram - [facility]. Both breasts are heterogeneously dense, which may obscure small masses (category c / 51-75% glandular tissue). Current study was also evaluated with a Computer Aided Detection (CAD) system. No significant masses, calcifications, or other findings are seen in either breast. There has been no significant interval change. IMPRESSION: NEGATIVE There is no mammographic evidence of malignancy. A 1 year screening mammogram is recommended. Based on the Tyrer Cuzick model (a risk assessment model) the patient's lifetime risk is 8.4% and her 10 year risk is 4.4%. According to the ACR, ACS, and NCCN guidelines, an annual breast MRI exam along with mammogram is recommended if the patient's lifetime risk is 20% or greater. This exam was interpreted at Station ID: [id number]. NOTE: For mammograms, a report in lay terms will be sent to the patient. Approximately 15% of breast malignancies will not be visualized mammographically. In the management of a palpable breast mass, a negative mammogram must not discourage biopsy of a clinically suspicious lesion. Electronically Signed By: Rian martínez/sarah:06/02/2022 07:54:46 copy to: JANES MELGAR letter sent: Normal Exam ACR BI-RADS Category 1: Negative [id number]
--- NOTE | 2022-06-01 15:06 | DI.RAD.S_ITS ---
Bone Density Report Name: CHARLINE HERNÁNDEZ Age: 67 Sex: Female Ethnicity: White Date of : 1955 Indication: postmenopausal; screening for osteoporosis; Referring Provider: MAYA HOWELL Study: Bone densitometry was performed. Exam Date: June 01, 2022 Accession number: [id number] Bone Density: Region BMD T-score Z-score Classification AP Spine(L1-L4) 0.902 -1.3 0.6 Osteopenia Femoral Neck (Left) 0.719 -1.2 0.4 Osteopenia Total Hip (Left) 0.880 -0.5 0.8 Normal Femoral Neck (Right) 0.719 -1.2 0.4 Osteopenia Total Hip (Right) 0.870 -0.6 0.7 Normal Total Hip Mean 0.875 -0.6 0.8 Normal World Health Organization criteria for BMD impression classify patients as: Normal (T-score at or above -1.0), Osteopenia (T-score between -1.0 and -2.5), or Osteoporosis (T-score at or below -2.5). 10-year Fracture Risk(1): Major Osteoporotic Fracture 8.7% Hip Fracture 0.8% Reported Risk Factors: [place] (), Neck BMD=0.719, BMI=24.4 (1) FRAX(R) Version 3.08. Fracture probability calculated for an untreated patient. Fracture probability may be lower if the patient has received treatment. Previous Exams: -- Region Exam Age BMD T-score BMD Change BMD Change Date g/cm2 vs Baseline vs Previous -- AP Spine (L1-L4) 06/01/2022 67 0.902 -1.3 -0.125 (-12.2%)# -0.125 (-12.2%)# 01/15/2021 65 1.027 -0.2 Total Hip(Left) 06/01/2022 67 0.880 -0.5 0.025 (2.9%)# 0.025 (2.9%)# 01/15/2021 65 0.855 -0.7 Total Hip(Right) 06/01/2022 67 0.870 -0.6 0.029 (3.4%)# 0.029 (3.4%)# 01/15/2021 65 0.842 -0.8 -- *Denotes significance at 95% confidence level, LSC for AP Spine = 0.022 g/cm2, LSC for Total Hip = 0.027 g/cm2 # Denotes dissimilar scan types or analysis methods Impression: The patient has low bone mass, based on the Total Spine T-score. The patient has an estimated ten-year risk of hip fracture of 0.8% and an estimated ten-year risk of major fracture of 8.7%, based on the WHO FRAX algorithm. No significant bone loss was observed. Discussion: BONE DENSITY IS LOW AT ONE OR MORE SKELETAL SITES. This patient's lowest T-score is low at one or more skeletal sites. It meets the World Health Organization's (WHO) criteria for low bone mass (T-score between -1.0 and -2.5). The patient's 10-year risk of fracture as calculated by FRAX is less than the threshold where pharmacological therapy is recommended by the National Osteoporosis Foundation (NOF). However, all treatment decisions require clinical judgment and consideration of individual patient factors, including patient preferences, comorbidities, previous drug use, risk factors not captured in the FRAX model (e.g., frailty, falls, vitamin D deficiency, increased bone turnover, interval significant decline in bone density) and possible under or overestimation of fracture risk by FRAX. The patient should follow a healthful lifestyle (good nutrition with adequate calcium and vitamin D, and appropriate weight-bearing exercise). Follow-Up: Consider repeating this study in 2 to 3 years to reassess this patient's status, or sooner if there is some new clinical indication. Reported by: ESTEPHANIA GAMINO M.D. on 06/01/2022 3:41:00 PM.
== END ==
PROVIDERS: PCP Registered Nurse Diabetes Educator; Referring Provider Registered Nurse Diabetes Educator; Visit Provider Registered Nurse Diabetes Educator
DX: Z12.31 Encounter for screening mammogram for malignant neoplasm of breast; M85.88 Other specified disorders of bone density and structure, other site; Z13.820 Encounter for screening for osteoporosis; Z80.3 Family history of malignant neoplasm of breast; Z78.0 Asymptomatic menopausal state
CPT/HCPCS: 77063; 77067; 77080

== ENCOUNTER → 2022-06-02 07:06 | Outpatient (CLI) | payer MEDICARE, MEDICAID, SELFPAY ==
[2022-06-02 07:50] LABS: Hematocrit 40.9 % (36-46); Hemoglobin 13.5 g/dL (12.0-16.0); Mean Corpuscular HGB Conc 33.1 % (30-36); Mean Corpuscular Hemoglobin 29.1 PG (26-34); Platelet Count 201 X10^3/uL (150-400); Red Blood Cell Count 4.65 X10^6/uL (4.0-5.2); Red Cell Distribution Width 13.6 % (11.6-14.8); White Blood Cell Count 5.9 X10^3/uL (4.5-11.0)
[2022-06-02 08:35] LABS: Creatinine Urine Random 112.6 mg/dL
[2022-06-02 08:39] LABS: Microalbumi Creatinin Ratio Ur 7.1 ug/mg CR (<30); Microalbumin Urine Random 0.8 mg/dL (0-1.6)
[2022-06-02 08:41] LABS: Alanine Aminotransferase 26 IU/L (<35); Albumin Globulin Ratio 1.3 (1.0-2.8); Alkaline Phosphatase 54 U/L (38-126); Aspartate Aminotransferase 25 IU/L (14-36); BUN Creatinine Ratio 24.4 (6-22); Bilirubin Total 1.4 mg/dL (0.2-1.3); Blood Urea Nitrogen 22 mg/dL (7-17); Calcium 8.9 mg/dL (8.4-10.2); Carbon Dioxide 29 mmol/L (22-32); Chloride 103 mmol/L (98-107); Cholesterol 229 mg/dL (140-199); Estimated Glomerular Filt Rate > 60 mL/min (>60); Glucose 117 mg/dL (80-110); HDL Cholesterol 46 mg/dL (40-60); HEMOLYSIS < 15 (0-50); LDL Cholesterol Calculated 163 mg/dL (<100); Potassium 4.1 mmol/L (3.4-5.1); Sodium 138 mmol/L (137-145); Triglycerides 100 mg/dL (35-150)
[2022-06-02 09:08] LABS: Cancer Antigen 125 7.4 U/mL (0-35)
[2022-06-03 06:24] LABS: Labcorp Hemoglobin (Hb) A1c 6.4 % (4.8-5.6)
[2022-06-03 16:13] LABS: Hep C Virus Ab w/Reflex Quant NEGATIVE s/c (NEGATIVE)
== END ==
PROVIDERS: PCP Registered Nurse Diabetes Educator; Referring Provider Registered Nurse Diabetes Educator; Visit Provider Registered Nurse Diabetes Educator
DX: E78.5 Hyperlipidemia, unspecified (principal); Z11.59 Encounter for screening for other viral diseases; N18.9 Chronic kidney disease, unspecified; Z80.41 Family history of malignant neoplasm of ovary; R73.01 Impaired fasting glucose
CPT/HCPCS: 36415; 80053; 80061; 82043; 82570; 83036; 85027; 86304; 86803

== ENCOUNTER → 2022-12-06 08:32 | Outpatient (CLI) | payer MEDICARE, MEDICAID, SELFPAY ==
[2022-12-06 09:02] LABS: Hemoglobin A1C% w Est Avg Glu 5.9 % (4.0-6.0)
[2022-12-06 09:06] LABS: Cholesterol 166 mg/dL (140-199); Glucose 118 mg/dL (80-110); HDL Cholesterol 47 mg/dL (40-60); LDL Cholesterol Calculated 101 mg/dL (<100); Triglycerides 88 mg/dL (35-150)
== END ==
PROVIDERS: PCP Family Medicine; Referring Provider Registered Nurse Diabetes Educator; Visit Provider Registered Nurse Diabetes Educator
DX: E78.5 Hyperlipidemia, unspecified (principal); R73.01 Impaired fasting glucose
CPT/HCPCS: 36415; 80061; 82947; 83036

== ENCOUNTER → 2022-12-21 09:44 | Outpatient (CLI) | payer MEDICARE, MEDICAID, SELFPAY ==
--- NOTE | 2022-12-21 09:45 | DI.RAD.S_ITS ---
PROCEDURE: XR HIP W PEL IF DONE RT 2V INDICATIONS: Lumbar Radiculopathy TECHNIQUE: AP pelvis with lateral view(s) of the right hip(s). COMPARISON: None. FINDINGS: Bones: No fractures or dislocations. Pelvic ring appears intact. No suspicious bony lesions. Possible/equivocal minimal hip joint space narrowing bilaterally. Soft tissues: The visualized bowel gas pattern is normal. No suspicious soft tissue calcifications. IMPRESSION: No acute fracture or dislocation identified. Possible/equivocal minimal hip degenerative changes. Dictated by: Alberto Hussein M.D. on 12/21/2022 at 15:44 Approved by: Alberto Hussein M.D. on 12/21/2022 at 15:46
--- NOTE | 2022-12-21 09:45 | DI.RAD.S_ITS ---
PROCEDURE: XR LUMBAR SPINE MIN 4V INDICATIONS: Lumbar Radiculopathy TECHNIQUE: 5 views of the lumbar spine were acquired, including bilateral oblique views. COMPARISON: None. FINDINGS: Bones: There appear to be 5 nonrib-bearing vertebrae present with hypoplasic 12th ribs. . No vertebral body compression fractures. 6 mm anterolisthesis L4 on L5. Mild-moderate multilevel degenerative changes with disc height loss, endplate spurring, and facet arthropathy. Suspect at least mild multilevel bony foraminal narrowing on oblique views. Soft tissues: Overlying bowel gas pattern is normal. No suspicious soft tissue calcifications. IMPRESSION: Multilevel degenerative changes of the lumbar spine. Dictated by: Alberto Hussein M.D. on 12/21/2022 at 15:46 Approved by: Alberto Hussein M.D. on 12/21/2022 at 15:50
== END ==
LOC: RAD 09:45
PROVIDERS: PCP Family Medicine; Referring Provider Family Medicine; Visit Provider Family Medicine
DX: M47.26 Other spondylosis with radiculopathy, lumbar region (principal); M25.551 Pain in right hip
CPT/HCPCS: 72110; 73502

== ENCOUNTER → 2023-05-25 08:07 | Outpatient (CLI) | payer MEDICARE, SELFPAY ==
[2023-05-25 09:21] LABS: Hemoglobin A1C% w Est Avg Glu 6.2 % (4.0-6.0)
[2023-05-25 09:33] LABS: Alanine Aminotransferase 32 IU/L (<35); Albumin 4.1 g/dL (3.5-5.0); Albumin Globulin Ratio 1.5 (1.0-2.8); Alkaline Phosphatase 67 U/L (38-126); Aspartate Aminotransferase 26 IU/L (14-36); Bilirubin Total 1.4 mg/dL (0.2-1.3); Blood Urea Nitrogen 25 mg/dL (7-17); Calcium 10.1 mg/dL (8.4-10.2); Carbon Dioxide 31 mmol/L (22-32); Chloride 108 mmol/L (98-107); Cholesterol 166 mg/dL (140-199); Estimated Glomerular Filt Rate > 60 mL/min (>60); Globulin 2.8 g/dL (1.7-4.1); Glucose 109 mg/dL (80-110); HDL Cholesterol 40 mg/dL (40-60); HEMOLYSIS < 15 (0-50); LDL Cholesterol Calculated 98 mg/dL (<100); Potassium 4.3 mmol/L (3.4-5.1); Sodium 141 mmol/L (137-145); Total Protein 6.9 g/dL (6.3-8.2); Triglycerides 139 mg/dL (35-150)
[2023-05-25 09:56] LABS: Vitamin D 25 Hydroxy (D3) 33.7 ng/mL (30.0-100.0)
== END ==
PROVIDERS: PCP Family Medicine; Referring Provider Family Medicine; Visit Provider Family Medicine
DX: R73.03 Prediabetes (principal); E78.5 Hyperlipidemia, unspecified; M85.80 Other specified disorders of bone density and structure, unspecified site; E55.9 Vitamin D deficiency, unspecified
CPT/HCPCS: 36415; 80053; 80061; 82306; 83036

== ENCOUNTER → 2023-06-23 08:11 | Outpatient (CLI) | payer MEDICARE, SELFPAY ==
--- NOTE | 2023-06-23 08:13 | DI.MG.S_ITS ---
BILATERAL DIGITAL SCREENING MAMMOGRAM 3D/2D WITH CAD: 06/23/2023 CLINICAL: Routine screening. Family history of breast cancer. Comparison is made to exams dated: 06/01/2022 mammogram, 04/17/2021 mammogram, and 03/14/2020 mammogram - [facility]. Both breasts are heterogeneously dense, which may obscure small masses (category c / 51-75% glandular tissue). Current study was also evaluated with a Computer Aided Detection (CAD) system. There is an asymmetry in the left breast middle depth central to the nipple seen on the craniocaudal view only. This is more prominent. No other significant masses, calcifications, or other findings are seen in either breast. IMPRESSION: INCOMPLETE: NEEDS ADDITIONAL IMAGING EVALUATION The asymmetry in the left breast is indeterminate. Additional views with possible ultrasound are recommended. Based on the Tyrer Cuzick model (a risk assessment model) the patient's lifetime risk is 7.9% and her 10 year risk is 4.4%. According to the ACR, ACS, and NCCN guidelines, an annual breast MRI exam along with mammogram is recommended if the patient's lifetime risk is 20% or greater. This exam was interpreted at Station ID: [id number]. NOTE: For mammograms, a report in lay terms will be sent to the patient. Approximately 15% of breast malignancies will not be visualized mammographically. In the management of a palpable breast mass, a negative mammogram must not discourage biopsy of a clinically suspicious lesion. Electronically Signed By: Rian Villagomez M.D. lc/:06/23/2023 13:30:10 copy to: JANES MELGAR letter sent: Additional Imaging Needed ACR BI-RADS Category 0: Incomplete 3340F
== END ==
PROVIDERS: PCP Family Medicine; Referring Provider Family Medicine; Visit Provider Family Medicine
DX: Z12.31 Encounter for screening mammogram for malignant neoplasm of breast (principal); Z80.3 Family history of malignant neoplasm of breast; R92.333 Mammographic heterogeneous density, bilateral breasts
CPT/HCPCS: 77063; 77067

== ENCOUNTER → 2023-07-15 09:24 | Outpatient (CLI) | payer MEDICARE, SELFPAY ==
--- NOTE | 2023-07-15 09:25 | DI.MG.S_ITS ---
UNILATERAL LEFT DIGITAL DIAGNOSTIC MAMMOGRAM 3D/2D WITH ADDITIONAL VIEWS: 07/15/2023 CLINICAL: Additional evaluation requested from prior study. Comparison is made to exams dated: 06/23/2023 mammogram, 06/01/2022 mammogram, and 04/17/2021 mammogram - [facility]. The left breast is heterogeneously dense, which may obscure small masses (category c / 51-75% glandular tissue). There is an asymmetry in the left breast middle depth central to the nipple seen on the craniocaudal view only. This is not seen in additional views. No other significant masses or calcifications are seen in the breast. IMPRESSION: INCOMPLETE: NEEDS ADDITIONAL IMAGING EVALUATION The asymmetry in the left breast is indeterminate. An ultrasound is recommended. Based on the Tyrer Cuzick model (a risk assessment model) the patient's lifetime risk is 7.9% and her 10 year risk is 4.4%. According to the ACR, ACS, and NCCN guidelines, an annual breast MRI exam along with mammogram is recommended if the patient's lifetime risk is 20% or greater. This exam was interpreted at Station ID: [id number]. NOTE: For mammograms, a report in lay terms will be sent to the patient. Approximately 15% of breast malignancies will not be visualized mammographically. In the management of a palpable breast mass, a negative mammogram must not discourage biopsy of a clinically suspicious lesion. Electronically Signed By: Rian martínez/sarah:07/15/2023 10:23:37 copy to: JANES HARDING BI-RADS Category 0: Incomplete [id number]
--- NOTE | 2023-07-15 09:25 | DI.US.S_ITS ---
LIMITED ULTRASOUND OF LEFT BREAST: 07/15/2023 CLINICAL: Patient returns today to evaluate a focal asymmetry in the left breast. Comparison is made to exams dated: 07/15/2023 mammogram, 06/23/2023 mammogram, 06/01/2022 mammogram, 04/17/2021 mammogram, 03/14/2020 mammogram, and 11/11/2018 mammogram - [facility]. Color flow and real-time ultrasound of the left breast 3 o'clock, and retroareolar regions were performed. Velasquez scale images of the real-time examination were reviewed. Incidental benign duct ectasia is seen. IMPRESSION: BENIGN There is no sonographic evidence of malignancy. There is no abnormality seen in the left breast to correspond with the mammography finding. Return to annual mammogram screening schedule is recommended. This exam was interpreted at Station ID: [id number]. Electronically Signed By: Rian Villagomez M.D. lc/:07/15/2023 10:24:52 copy to: JANES MELGAR letter sent: Normal Exam Ultrasound BI-RADS: 2 Benign
== END ==
LOC: MAMMO 09:25
PROVIDERS: PCP Family Medicine; Referring Provider Family Medicine; Visit Provider Family Medicine
DX: R92.8 Other abnormal and inconclusive findings on diagnostic imaging of breast (principal); R92.332 Mammographic heterogeneous density, left breast
CPT/HCPCS: 76642; 77065; G0279

== ENCOUNTER 2024-03-13 08:31 | Emergency (ER) | payer MEDICARE, SELFPAY ==
[2024-03-13] VITALS (14 sets, daily range): BP systolic 159–217; BP diastolic 84–103; PULSE 66–78; RESP 11–28; TEMP 36.6; O2SAT 94–98; BMI 26.4
--- NOTE | 2024-03-13 08:39 | EKG_ITS ---
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
[2024-03-13 08:53] LABS: Add Manual Diff / Slide Review NO; Basophils Absolute Auto 100 /uL (0-100); Basophils Percent Auto 0.8 % (0-2); Eosinophils Absolute Auto 200 /uL (0-450); Eosinophils Percent Auto 2.8 % (2-4); Hemoglobin 13.9 g/dL (12.0-16.0); Lymphocytes Absolute Auto 2000 /uL (1100-4500); Lymphocytes Percent Auto 30.3 % (25-40); Mean Corpuscular Hemoglobin 29.9 PG (26-34); Mean Corpuscular Volume 88.2 fL (80-100); Monocytes Absolute Auto 600 /uL (0-900); Monocytes Percent Auto 9.1 % (3-14); Neutrophils Absolute Auto 3800 /uL (1500-7000); Platelet Count 224 X10^3/uL (150-400); Red Blood Cell Count 4.65 X10^6/uL (4.0-5.2); Red Cell Distribution Width 13.2 % (11.6-14.8); White Blood Cell Count 6.7 X10^3/uL (4.5-11.0)
[2024-03-13 09:12] LABS: Alanine Aminotransferase 41 IU/L (<35); Albumin 4.4 g/dL (3.5-5.0); Albumin Globulin Ratio 1.5 (1.0-2.8); Alkaline Phosphatase 78 U/L (38-126); Aspartate Aminotransferase 31 IU/L (14-36); BUN Creatinine Ratio 18.3 (6-22); Bilirubin Total 1.4 mg/dL (0.2-1.3); Blood Urea Nitrogen 19 mg/dL (7-17); Calcium 9.7 mg/dL (8.4-10.2); Carbon Dioxide 30 mmol/L (22-32); Chloride 105 mmol/L (98-107); Estimated Glomerular Filt Rate 59 mL/min (>60); Glucose 109 mg/dL (80-110); HEMOLYSIS < 15 (0-50); Lipase 74 U/L (23-300); Potassium 4.3 mmol/L (3.4-5.1); Sodium 140 mmol/L (137-145); Total Protein 7.4 g/dL (6.3-8.2)
--- NOTE | 2024-03-13 09:22 | ED_ITS ---
HPI - General Adult General Chief complaint: Abdominal Pain Stated complaint: abd pain r side Time Seen by Provider: 03/13/24 08:42 Source: patient Mode of arrival: Ambulatory History of Present Illness HPI narrative: 68-year-old woman with a history of hyperlipidemia she does not currently. Diagnosis of hypertension but tends to see if physician only yearly. She notes over the last week she has been having intermittent episodes of diffuse right- sided abdominal pain that does not seem to be improving. She notes bloating but had attributed that to slight weight gain over the holidays. She notes she had a normal bowel movement today has not complain of constipation and this is not been a chronic issue for her. Denies pain worsened with fasting or eating. No fevers cough or chills. No flank pain. No chest pain, shortness for breath or palpitations Related Data Home Medications Medication Instructions Recorded Confirmed calcium carbonate (Calcium 600) 600 mg PO DAILY 12/21/22 06/06/23 Previous Rx's Medication Instructions Recorded atorvastatin 20 mg tablet 20 mg PO ONCE PM #90 tabs 09/07/23 Allergies Allergy/AdvReac Type Severity Reaction Status Date / Time carisoprodol [CARISOPRODOL] Allergy Severe SWELLING, Verified 03/13/24 08:42 HIVES piroxicam [PIROXICAM] Allergy Severe SWOLLEN, Verified 03/13/24 08:42 PUFFY IN THE FACE Review of Systems Review of Systems Narrative: Pertinent positive and negative findings as per HPI Patient History Medical History (Updated 03/13/24 @ 12:28 by Georgia Hummel MD) Osteopenia History of colon polyps Elevated BP without diagnosis of hypertension Chickenpox (~1964) Measles Mumps Ovarian cyst HPV in female Abnormal Pap smear of cervix Surgical History Status post colonoscopy History of tonsillectomy (~1965) Family History Brother Age: 71 High cholesterol Father Cancer Hypertension Mother Cancer Sister Age: 69 High cholesterol Social History household members: spouse Smoking Status: Never smoker second hand exposure: No alcohol intake: current substance use type: does not use Smoking Status: Never smoker alcohol intake frequency: 0-2 drinks per day Exam Initial Vital Signs Initial Vital Signs: Vital Signs Pulse Rate 70 03/13/24 08:36 Blood Pressure 214/101 H 03/13/24 08:36 Pulse Oximetry 97 03/13/24 08:36 General: Healthy appearing, in no acute distress. Able to give a complete and coherent history. Well-nourished well-developed HEENT: Moist mucous membranes, normal sclera with reactive pupils, Neck: No JVD, supple Respiratory: Lungs are clear to auscultation, no wheezing no rales no rhonchi. Full and symmetrical air movement Cardiac: Regular rate and rhythm no murmurs no bruits Abdomen: Soft, mild tenderness on the right side without rebound or guarding. No specific tenderness over the gallbladder fossa or right lower quadrant. No flank pain Skin: Warm and dry, no rashes Neurologic: Grossly neurologically intact with no obvious asymmetries or abnormalities Extremities: No trauma, well perfused Psych: Cooperative, appropriate insight and affect Course Orders Ordered: ED Orders 03/13/24 08:39 EKG-12 Lead Stat 03/13/24 08:45 Complete Blood Count AUTO DIFF Stat Comprehensive Metabolic Panel Stat Lipase Stat 03/13/24 09:22 CT abdomen pelvis w con Stat Ondansetron HCl (Ondansetron 4 Mg/2 Ml Inj) 4 mg IV NOW PRN PRN Reason: Nausea And Vomiting Ondansetron HCl (Ondansetron 4 Mg Odt) 4 mg PO NOW PRN PRN Reason: Nausea And Vomiting Vital Signs Vital signs: Vital Signs - 8 hr 03/13/24 08:36 03/13/24 08:36 03/13/24 08:40 Temperature 97.8 F Pulse Rate 70 70 Respiratory Rate 16 Blood Pressure 214/101 H 214/101 H Pulse Oximetry 97 97 Oxygen Delivery Method Room Air 03/13/24 08:54 03/13/24 08:54 03/13/24 09:00 Temperature Pulse Rate 78 77 Respiratory Rate 28 H 13 Blood Pressure 212/93 H Pulse Oximetry 97 97 Oxygen Delivery Method 03/13/24 09:00 03/13/24 09:43 03/13/24 09:44 Temperature Pulse Rate 71 67 Respiratory Rate 22 20 Blood Pressure 217/103 H Pulse Oximetry 97 97 Oxygen Delivery Method 03/13/24 09:44 03/13/24 10:00 03/13/24 10:00 Temperature Pulse Rate 67 Respiratory Rate 20 Blood Pressure 172/100 H 173/98 H Pulse Oximetry 97 Oxygen Delivery Method Room Air 03/13/24 10:30 03/13/24 10:30 03/13/24 11:00 Temperature Pulse Rate 67 Respiratory Rate 12 Blood Pressure 165/92 H 189/85 H Pulse Oximetry 97 Oxygen Delivery Method 03/13/24 11:00 03/13/24 11:30 03/13/24 11:30 Temperature Pulse Rate 68 72 Respiratory Rate 14 17 Blood Pressure 179/84 H 188/98 H Pulse Oximetry 96 96 Oxygen Delivery Method Room Air Medical Decision Making Lab Data 03/13/24 08:45 03/13/24 08:45 Labs: Lab Results 03/13/24 Range/Units 08:45 WBC 6.7 (4.5-11.0) X10^3/uL RBC 4.65 (4.0-5.2) X10^6/uL Hgb 13.9 (12.0-16.0) g/dL Hct 41.0 (36-46) % MCV 88.2 (80-100) fL MCH 29.9 (26-34) PG MCHC 34.0 (30-36) % RDW 13.2 (11.6-14.8) % Plt Count 224 (150-400) X10^3/uL Neut % (Auto) 57.0 (50-75) % Lymph % (Auto) 30.3 (25-40) % Faulk % (Auto) 9.1 (3-14) % Eos % (Auto) 2.8 (2-4) % Baso % (Auto) 0.8 (0-2) % Neut # (Auto) 3800 (5493-2025) /uL Lymph # (Auto) 2000 (1862-7246) /uL Faulk # (Auto) 600 (0-900) /uL Eos # (Auto) 200 (0-450) /uL Baso # (Auto) 100 (0-100) /uL Sodium 140 (137-145) mmol/L Potassium 4.3 (3.4-5.1) mmol/L Chloride 105 (98-107) mmol/L Carbon Dioxide 30 (22-32) mmol/L BUN 19 H (7-17) mg/dL Creatinine 1.04 (0.52-1.04) mg/dL Estimated GFR 59 L (>60) mL/min BUN/Creatinine Ratio 18.3 (6-22) Glucose 109 (80-110) mg/dL Calcium 9.7 (8.4-10.2) mg/dL Total Bilirubin 1.4 H (0.2-1.3) mg/dL AST 31 (14-36) IU/L ALT 41 H (<35) IU/L Alkaline Phosphatase 78 (38-126) U/L Total Protein 7.4 (6.3-8.2) g/dL Albumin 4.4 (3.5-5.0) g/dL Globulin 3.0 (1.7-4.1) g/dL Albumin/Globulin Ratio 1.5 (1.0-2.8) Lipase 74 (23-300) U/L Urine Dip Bedside Urine Glucose Negative Bedside Urine Bilirubin - Negative Bedside Urine Ketone - Negative Urine Specific [place] 1.015 Bedside Urine Occult Blood - Negative Bedside Urine pH 6.5 Bedside Urine Protein - Negative Bedside Urine Urobilinogen - Negative Bedside Urine Nitrite - Negative Bedside Urine Leukocytes - Negative Esterase Point of care testing: Urine Dip Bedside Urine Glucose Negative Bedside Urine Bilirubin - Negative Bedside Urine Ketone - Negative Urine Specific [place] 1.015 Bedside Urine Occult Blood - Negative Bedside Urine pH 6.5 Bedside Urine Protein - Negative Bedside Urine Urobilinogen - Negative Bedside Urine Nitrite - Negative Bedside Urine Leukocytes - Negative Esterase Imaging Data CT scan - abdomen/pelvis: Radiologist's Impression: PROCEDURE: CT ABDOMEN PELVIS W CON INDICATIONS: 1 week right sided abdominal pain TECHNIQUE: After the administration of intravenous contrast, axial sections acquired from the lung bases to the pubic symphysis. Coronal and sagittal reformats were performed. For radiation dose reduction, the following was used: automated exposure control, adjustment of mA and/or kV according to patient size. COMPARISON: None. FINDINGS: Image quality: Diagnostic. Lower Chest: No significant findings. ABDOMEN: Liver: No solid mass. Gallbladder: No radiopaque gallstones or wall thickening. Biliary ducts: No biliary dilation. Pancreas: No ductal dilation. Spleen: There is an indeterminate 1.1 cm low-density lesion involving the spleen. Adrenal Glands: No adrenal nodules. Kidneys and Ureters: There is a 2.5 cm simple right renal cyst. Stomach and Bowel: In the right upper quadrant adjacent to the bowel there is a 2.9 x 2.2 x 1.1 cm fatty mass with surrounding inflammation. The lesion most likely represents epiploic appendagitis. There are few sigmoid diverticuli. Peritoneum: No abnormal intraperitoneal fluid. No free air. Ventral Wall: No significant ventral hernia. Abdominal Nodes: No retroperitoneal or mesenteric adenopathy by size criteria. Vessels: Aorta and inferior vena cava are normal in size. PELVIS: Pelvic Organs: Unremarkable. Bladder: No bladder wall thickening, accounting for underdistention. Pelvic Nodes: No enlarged lymph nodes. Miscellaneous: No inguinal hernias are seen. Bones: There is a mild grade 1 anterolisthesis of L4 on L5. IMPRESSION: Acute epiploic appendagitis. Indeterminate splenic nodule. Consider follow-up abdominal MRI in 6-12 months. Dictated by: Mat Garvey M.D. on 03/13/2024 at 9:38 MDM Narrative Medical decision making narrative: CC: One-week of right-sided abdominal pain Complicating co-morbidities: Hyperlipidemia, blood pressure significantly elevated in the ER with no diagnosis of hypertension, mother apparently was diagnosed with ovarian cancer and had similar symptoms patient is concerned that this may be an issue Data collected from: patient Medical records reviewed: Primary care note May of 2023 she was seen for fatigue normal blood pressure that time Patient states she had a colonoscopy within the last couple of years that had some difficulty because of the sharpness at her splenic flexure and passing the scope but was eventually told there were no issues Differential considered: Constipation, appendicitis, cholecystitis, hydronephrosis, partial bowel obstruction, carcinomatosis Exam documented above, pertinent findings include: Mild tenderness right lower quadrant no rebound or guarding remainder exam is benign Lab Test results independently reviewed as above. Pertinent findings: CBC is unremarkable Chemistries are reassuring. GFR is calculated at 59 with a creatinine of 1.04. Potassium sodium are appropriate. Bilirubin is minimally elevated at 1.4 similar to March this year. Minimal AST elevation at 41. Lipase is unremarkable Independently reviewed EKG: Sinus rhythm at a rate of 68 not meeting criteria for LVH but large QRS is noted in setting of elevated blood pressure Imaging studies independently reviewed: CT scan shows acute epiploic appendagitis that is in her area of tenderness. Incidentally found splenic nodule also noted Treatments: Zofran Discussion: 68-year-old woman with a week of right upper quadrant tenderness. CT scan indicates epiploic appendagitis with no other abnormalities that would require hospitalization or surgical consultation. This diagnosis in anticipated course of resolution is reviewed with the patient and questions were answered. She is safe for discharge regarding her abdominal pain. We did discuss her elevated blood pressure readings noted in the emergency department. I have suggested that she buy a blood pressure cuff and check blood pressure readings couple of times a week and review this with her ER follow up appointment with her primary care physician. We also discussed the indeterminate splenic nodule that was noted with Radiology recommendation for MRI in 6 months. Discharge Plan Departure Patient Disposition: Home Clinical Impression: Epiploic appendagitis, Nodule of spleen, Elevated blood pressure reading Activity Restrictions/Additional Instructions: Thank you for coming in today Your CT scan shows epiploic appendagitis. There are small little fat tags that hanging off the outside of your colon. This is normal. One of those tiny little tags has twisted on itself, for unknown reasons, and that little tag is going to fall off. This is the cause of your pain. This will go away completely. This is nothing that needs surgery or antibiotics. Using 400 mg of ibuprofen (2 [id number] pills) and 1 Tylenol every 6 hours can be very helpful in controlling pain. There was no evidence of cancers, gallbladder problems liver problems and your blood work was reassuring Your blood pressure was elevated in the emergency room. I am going to suggest you have a blood pressure cuff and keep track of your blood pressures every couple of days, please write the numbers down and schedule an appointment with your primary care physician to discuss your high blood pressure numbers to decide if any further treatment is needed. Your goal is 120/70. If you are number is high and you have absolutely no symptoms, you do not need to come into the emergency department. if your blood pressure reading is above 240/120 and you have chest pressure, headache, blurry vision, numbness or tingling, than an emergency visit would be appropriate Incidentally noted on your CT scan was small area of abnormality in your spleen. The radiologist recommended an MRI in about 6 months to see if there actually is a true abnormality that needs further evaluation in that area. Please discuss this with your primary care provider to If you find that you are getting worse or develop any new symptoms, please feel free to return to the emergency department for further evaluation. Prescriptions: No Action calcium carbonate [Calcium 600] 600 mg calcium (1,500 mg) tablet 600 mg PO DAILY atorvastatin 20 mg tablet 20 mg PO ONCE PM Qty: 90 2RF Referrals: Antoinette Galloway MD [Primary Care Provider] - Stand Alone Forms: Patient Portal/API/Survey
== END 2024-03-13 12:45 | disposition home or self-care (01) ==
PROVIDERS: Emergency Provider Emergency Medicine; PCP Family Medicine
DX: K63.89 Other specified diseases of intestine (principal); D73.89 Other diseases of spleen; R03.0 Elevated blood-pressure reading, without diagnosis of hypertension
CPT/HCPCS: 36415; 74177; 80053; 81003; 83690; 85025; 93005; 93010; 99283; 99284; Q9967

== ENCOUNTER → 2024-06-23 08:04 | Outpatient (CLI) | payer MEDICARE, SELFPAY ==
[2024-06-23 09:10] LABS: Hemoglobin A1C% w Est Avg Glu 5.8 % (4.0-6.0)
[2024-06-23 09:24] LABS: Alanine Aminotransferase 27 IU/L (<35); Albumin 4.4 g/dL (3.5-5.0); Alkaline Phosphatase 61 U/L (38-126); Aspartate Aminotransferase 28 IU/L (14-36); BUN Creatinine Ratio 24.2 (6-22); Bilirubin Total 1.8 mg/dL (0.2-1.3); Blood Urea Nitrogen 24 mg/dL (7-17); Calcium 9.6 mg/dL (8.4-10.2); Carbon Dioxide 26 mmol/L (22-32); Chloride 108 mmol/L (98-107); Cholesterol 145 mg/dL (140-199); Estimated Glomerular Filt Rate > 60 mL/min (>60); Globulin 2.2 g/dL (1.7-4.1); Glucose 115 mg/dL (70-99); HDL Cholesterol 43 mg/dL (40-60); HEMOLYSIS < 15 (0-50); LDL Cholesterol Calculated 88 mg/dL (<100); Potassium 4.3 mmol/L (3.4-5.1); Sodium 141 mmol/L (137-145); Total Protein 6.6 g/dL (6.3-8.2); Triglycerides 69 mg/dL (35-150)
[2024-06-23 09:55] LABS: TSH w/ Reflex to FT4 2.41 uIU/mL (0.47-4.68)
== END ==
LOC: LAB 08:05
PROVIDERS: PCP Family Medicine; Referring Provider Family Medicine; Visit Provider Family Medicine
DX: R73.03 Prediabetes (principal); E78.5 Hyperlipidemia, unspecified; N18.31 Chronic kidney disease, stage 3a; Z79.899 Other long term (current) drug therapy
CPT/HCPCS: 36415; 80053; 80061; 83036; 84443

== ENCOUNTER → 2024-07-31 08:18 | Outpatient (CLI) | payer MEDICARE, SELFPAY ==
--- NOTE | 2024-07-31 08:19 | DI.MG.S_ITS ---
MM screening mammo BI: 07/31/2024. BI-RADS: 0 CLINICAL: 69-year old female for bilateral screening mammogram. Tyrer-Cuzick lifetime risk of 16.1%. No personal or first-degree family history of breast cancer. Current reported family history of breast cancer: maternal aunt, second maternal aunt and paternal aunt. History of ovarian cancer in one first-degree relative. PRIOR EXAMS 07/15/2023, 06/23/2023, 06/01/2022, 04/17/2021, 03/14/2020, 11/11/2018, 01/07/2018, 01/05/2017, 02/06/2016. MAMMOGRAPHY TECHNIQUE: 2D and 3D (tomosynthesis) digital mammographic views obtained, with additional images as needed for full coverage. Current study was also evaluated with a Computer Aided Detection (CAD) system. DENSITY C. The breasts are heterogeneously dense, which may obscure small masses. MAMMOGRAPHY FINDINGS Right: Inner at 2:00, Middle depth: Focal asymmetry needing additional imaging evaluation. Left: No suspicious mass, asymmetry, microcalcification, or other abnormality seen. No significant change from comparison. IMPRESSION: Right (Asymmetry): Inner at 2:00, Middle depth * Incomplete - focal asymmetry needing additional imaging evaluation. Left * No evidence of malignancy. RECOMMENDATIONS Right: Inner at 2:00, Middle depth * Further evaluation with diagnostic mammography and diagnostic ultrasound. Ultrasound to be performed only if needed. OVERALL ASSESSMENT CATEGORY BI-RADS-0: Incomplete - Need Additional Imaging Evaluation. PRELIMINARILY ELECTRONICALLY SIGNED: Brigette Blanton M.D. on 07/31/2024 at 04:53:26 PM PT ELECTRONICALLY SIGNED: Brigette Blanton M.D. on 07/31/2024 at 04:53:50 PM PT Interpreting Station ID: [id number]
== END ==
LOC: MAMMO 08:18
PROVIDERS: PCP Family Medicine; Referring Provider Family Medicine; Visit Provider Family Medicine
DX: Z12.31 Encounter for screening mammogram for malignant neoplasm of breast (principal); Z80.3 Family history of malignant neoplasm of breast; Z80.41 Family history of malignant neoplasm of ovary; R92.333 Mammographic heterogeneous density, bilateral breasts
CPT/HCPCS: 77063; 77067

== ENCOUNTER → 2024-08-15 08:27 | Outpatient (CLI) | payer MEDICARE, SELFPAY ==
--- NOTE | 2024-08-15 08:28 | DI.MRI.S_ITS ---
PROCEDURE: MR ABDOMEN WO/W CON INDICATIONS: 6 months to f/u on splenic nodul TECHNIQUE: Coronal HASTE, axial 2D FLASH in- and [id number]; axial breath-hold T2 FSE. Dynamic axial VIBE during the administration of contrast; post-contrast coronal VIBE or 2D FLASH with fat saturation from the hepatic dome to the iliac crests. Optional diffusion weighted imaging and ADC may be performed. COMPARISON: [facility], CT, CT ABDOMEN PELVIS W CON, 03/13/2024, 9:26. FINDINGS: Image quality: Diagnostic Lower chest: No basal effusions. No significant opacity on limited MRI evaluation. Normal heart size. Liver: Suspect small hemangioma in segment 5. Non cirrhotic liver contour Gallbladder and biliary system: Unremarkable, nondilated Pancreas: Approximately 1.1 cm cystic lesion seen at the head of the pancreas with small septations. No ductal dilation or enhancing soft tissue nodule is seen. Spleen: 1.1 cm lateral spleen lesion (13/20). This accumulates contrast on delayed phase and is similar to prior CT. No splenomegaly. Adrenals: No discrete nodules Kidneys: No solid renal mass or hydronephrosis. Right parapelvic cyst. Vessels and lymph nodes: No enlarged lymph nodes by size criteria. Non aneurysmal aorta. Main portal vein appears patent. Bowel and peritoneum: No small bowel obstruction. No drainable abscess or ascites Body wall: Unremarkable Bones: No aggressive appearing focal osseous abnormality. IMPRESSION: Spleen lesion is stable from prior CT and accumulates contrast on delayed phase, likely a benign angiomatous lesion assuming patient does not otherwise have a malignancy history. Incidentally noted 1.1 cm multiloculated cystic lesion at the pancreatic head, possibly IPMN or serous cystadenoma. No high risk features identified such as ductal dilation or discrete enhancing soft tissue nodule. Per consensus guidelines, 1 year follow-up pancreas MRI is suggested. Other findings above. Dictated by: Rian Villagomez M.D. on 08/15/2024 at 14:45 Approved by: Rian Villagomez M.D. on 08/15/2024 at 14:51
== END ==
PROVIDERS: PCP Family Medicine; Referring Provider Family Medicine; Visit Provider Family Medicine
DX: D73.89 Other diseases of spleen (principal); K86.9 Disease of pancreas, unspecified
CPT/HCPCS: 74183; A9579

== ENCOUNTER → 2024-08-29 09:24 | Outpatient (CLI) | payer MEDICARE, SELFPAY ==
--- NOTE | 2024-08-29 09:25 | DI.MG.S_ITS ---
MM diagnostic mammo unilat RT: 08/29/2024. BI-RADS: 1 CLINICAL: 69-year old female for right diagnostic mammogram that is a recall from screening on 07/31/2024. Tyrer-Cuzick lifetime risk of 16.1%. No personal or first-degree family history of breast cancer. Current reported family history of breast cancer: maternal aunt, second maternal aunt and paternal aunt. History of ovarian cancer in one first-degree relative. PRIOR EXAMS Mammogram(s): 07/31/2024. Other Exams on 07/15/2023, 06/23/2023, 06/01/2022, 04/17/2021, MAMMOGRAPHY TECHNIQUE: 2D and 3D (tomosynthesis) digital mammographic views obtained, with additional images as needed for full coverage. Current study was also evaluated with a Computer Aided Detection (CAD) system. DENSITY Right: C. The breasts are heterogeneously dense, which may obscure small masses. MAMMOGRAPHY FINDINGS Right: Inner at 2:00, Middle depth: The questioned focal asymmetry represents superimposition of normal fibroglandular tissue and is no longer visualized on today's additional imaging. No suspicious mass, asymmetry, microcalcification, or other abnormality seen. IMPRESSION: Right * No evidence of malignancy. RECOMMENDATIONS Bilateral * Annual screening mammography. COMMENTS: Findings and recommendations were conveyed to the patient during today's evaluation. OVERALL ASSESSMENT CATEGORY BI-RADS-1: Negative. [employer] recommends annual screening mammography beginning at age 40 for women with average risk of breast cancer. ELECTRONICALLY SIGNED: Mariano Knight M.D. on 08/29/2024 at 10:14:23 AM PT Interpreting Station ID: [id number]
== END ==
LOC: MAMMO 09:24
PROVIDERS: PCP Family Medicine; Referring Provider Family Medicine; Visit Provider Family Medicine
DX: R92.8 Other abnormal and inconclusive findings on diagnostic imaging of breast (principal); R92.333 Mammographic heterogeneous density, bilateral breasts; Z80.3 Family history of malignant neoplasm of breast
CPT/HCPCS: 77065; G0279